=== PATIENT | male | born 1995 | race Caucasian/White ===

== ENCOUNTER 2017-04-04 19:58 | Emergency (ER) | payer OTHER ==
[~2017-04-04] VITALS: Ht 172.7 cm; Wt 111.1 kg
--- NOTE | ~2017-04-04 | CR63 ---
[facility] A Service of [facility] RADIOLOGY TEXT RESULTS PATIENT: GORGE LE LOCATION: SED : [birth year] UNIT #: [id number] AGE: [address]: Annita Collins SEX: M ORDER DR: [id number] [address] [address] [id number] MR#: [id number] Acc #: [id number] NAME: GORGE LE. : 1995 SEX: M STUDY DATE/TIME: 04/04/2017 20:58 UNIT: SED ROOM: STUDY DESCRIPTION: CR Chest 2 View Attending Physician: Annita Collins Pa-C Ordering Physician: Physician Non-Staff Primary Care Physician: No Primary Care Physician MEDICAL IMAGING REPORT This report is preliminary unless electronic signature is present. EXAM 2-view chest 04/04/2017 INDICATION 22-year-old male with chest pain, sore throat symptoms 2 days, history of asthma. TECHNIQUE 2-view chest compared with 07/04/2012 FINDINGS PA and lateral examination of the chest upright shows a good expansion of the parenchyma with a normal distribution of the pulmonary vascularity. There is no indication of congestion, effusion, infiltrate, tumor, or nodular density. The pleural reflections and diaphragmatic contours are normal. The cardiac silhouette and mediastinal anatomy is within normal limits. IMPRESSION Normal chest. Dictated by... Eris Marshall M.D. THIS IS AN ELECTRONICALLY VERIFIED REPORT Eris Marshall M.D. at 04/05/2017 2:21 PM AYE/brice TD: 04/05/2017 10:55 JOB #: [id number] [facility] A Service [facility] RADIOLOGY TEXT RESULTS PATIENT: GORGE LE LOCATION: SED : [birth year] UNIT #: [id number] AGE: [address]: Annita Collins SEX: M ORDER DR: MEDICAL IMAGING REPORT Page 1 of 1
[~2017-04-04 19:58] MED LIST: ALBUTEROL17 G1; ALBUTEROL17 GM INH; BACLOFEN10 MG PO; ELIMITE60 GM TOP; FLEXERIL PO; MOTRIN600 M2 PO; MOTRIN600 MG PO; ROBAXIN 750750 M1 PO; TYLENOL #3 PO; VOLTAREN50 MG PO; ZITHROMAX PO
[2017-04-04 20:45] LABS: BASOPHIL# 0.1 X10e3 (0-0.3); BASOPHIL% 0.4 % (0-2.5); EOSINOPHIL# 0.4 X10e3 (0-0.7); EOSINOPHIL% 2.4 % (0.0-7.0); HEMATOCRIT 44.2 % (38.0-50.0); LYMPHOCYTE# 2.3 X10e3 (1.0-3.5); LYMPHOCYTE% 14.9 % (17.0-45.0); MEAN CELL VOLUME 88.1 FL (83-96); MEAN CORPUSCULAR HEMOGLOBIN 29.9 PG (28-34); MEAN CORPUSCULAR HGB CONC 33.9 g/dL (30-36); MEAN PLATELET VOLUME 8.9 FL (6.5-11.5); MONOCYTE# 1.5 X10e3 (0-1.0); MONOCYTE% 9.5 % (3.0-12.0); NEUTROPHIL# 11.3 X10e3 (1.5-7.1); NEUTROPHIL% 72.8 % (40-75); PLATELET COUNT 287 X10e3 (140-420); RED BLOOD COUNT 5.02 X10e (3.90-5.60); RED CELL DISTRIBUTION WIDTH 13.9 % (11.0-15.5); WHITE BLOOD COUNT 15.5 X10e3 (4.0-10.5)
[2017-04-04 20:46] LABS: DIFF IND NO
[2017-04-04 21:01] LABS: ALBUMIN SERUM 4.9 g/dL (3.5-5.0); BILIRUBIN,TOTAL 0.6 mg/dL (0.2-2.0); CALCIUM SERUM 9.3 mg/dL (8.4-10.2); CREATININE SERUM 1.3 mg/dL (0.6-1.4); GLOM FILT RATE Estimated 78.6 mL/min (>60); PROTEIN TOTAL SERUM 8.1 g/dL (6.0-8.3)
== END 2017-04-04 21:58 | disposition home or self-care (01) ==
LOC: SED 19:58
PROVIDERS: Physician Assistant
DX: K21.9 Gastro-esophageal reflux disease without esophagitis (principal); J45.909 Unspecified asthma, uncomplicated
CPT/HCPCS: 36415; 71020; 80053; 83690; 85025; 86677; 99285